=== PATIENT | female | born 1975 | race Caucasian/White ===

== ENCOUNTER 2017-04-16 14:17 | Emergency (ER) | payer OTHER ==
[2017-04-16] MEDS ORDERED: TDAP ADULT 0.5 ML INJ (BOOSTRIX) IM ONE (15:49)
--- NOTE | 2017-04-16 15:49 | EDPHY ---
H & P Time Seen by Provider: 04/16/17 14:45 HPI/ROS: CHIEF COMPLAINT: Dog bite left hand HISTORY OF PRESENT ILLNESS: 41-year-old female presents to the emergency department with a dog bite to her left hand. The patient went to a friend's alliance party and brought her dog and the owners dog apparently became spooked and was going to fight with the other dog and the patient was subsequently bit. This happened just prior to arrival. She is right-hand dominant. She is unsure of her last tetanus shot. The dog is up-to-date on rabies vaccine. ROS: Denies numbness or tingling in her fingers, retained foreign body. Past Medical/Surgical History: Negative Social History: Smoking Status: Never smoked Physical Exam: On examination the patient has puncture wound noted to the base of the left thenar eminence as well as the dorsal aspect of her left hand near the base of her hand just distal to the wrist. She has full range of motion of her fingers and her wrist. No palpable bony tenderness. Normal sensation to light touch with normal 2 point discrimination. No rotational deformities noted. Constitutional: Initial Vital Signs Temperature (C) 36.7 C 04/16/17 14:21 Heart Rate 71 04/16/17 14:21 Respiratory Rate 17 04/16/17 14:21 Blood Pressure 118/80 04/16/17 14:21 O2 Sat (%) 99 04/16/17 14:21 O2 Delivery Mode Room Air Allergies/Adverse Reactions: unknown abx Allergy (Uncoded 04/16/17 14:21) Home Medications: Medication Instructions Recorded Amoxicillin/Clavulanate Pot 875 mg PO BID #10 tab 04/16/17 [Augmentin 875 mg tab] MDM/Departure - MDM Medications Given: Discontinued Medications Diphtheria/Tetanus/Acell Pertussis (Boostrix) 0.5 ml IM .ONCE ONE Stop: 04/16/17 15:50 Last Admin: 04/16/17 16:08 Dose: 0.5 ml ED Course/Re-evaluation: Patient was given a tetanus shot. She will be started on Augmentin to prevent infection. Her wounds were thoroughly cleansed and irrigated. I do not think sutures are indicated. This was discussed with the patient. - Depart Disposition: Home, Routine, Self-Care Clinical Impression: Dog bite of left hand Qualifiers: Encounter type: initial encounter Qualified Code(s): S61.452A - Open bite of left hand, initial encounter; W54.0XXA - Bitten by dog, initial encounter Condition: Good Instructions: Animal Bite (ED), Acute Wounds (ED) Additional Instructions: Augmentin 875 mg twice daily for 5 days to prevent infection. Your given a tetanus shot today in the emergency department. Return if he notices any signs or symptoms of infection such as redness, swelling, increased pain, fever, purulent drainage. Prescriptions: Amoxicillin/Clavulanate Pot [Augmentin 875 mg tab] 875 mg PO BID #10 tab Referrals: Christiana Landon MD [[facility] – [place] Primary Care Provider] - 2-3 days, if not improved (Primary care provider clinical research monitor)
[2017-04-16 16:09] VITALS: BP 130/88; PULSE 80; RESP 14; TEMP 98.4; O2SAT 94
== END 2017-04-16 16:09 | disposition home or self-care (01) ==
DX: S61.452A Open bite of left hand, initial encounter (principal); Z23 Encounter for immunization; W54.0XXA Bitten by dog, initial encounter; Y92.89 Other specified places as the place of occurrence of the external cause